=== PATIENT | female | born 1975 | race Caucasian/White ===

== ENCOUNTER 2018-05-05 15:27 | Emergency (ER) | payer SELFPAY ==
[~2018-05-05] VITALS: Ht 162.6 cm; Wt 70.0 kg
[2018-05-05] MEDS ORDERED: OXYcodone/APAP 5/325MG TABLET ONE (16:39)
[2018-05-05] MEDS ORDERED: OXYcodone/APAP 5/325MG TABLET PO ONE (17:00)
[2018-05-05 18:43] VITALS: BP 126/74
== END 2018-05-05 18:46 | disposition home or self-care (01) ==
LOC: ED 16:28
DX: S76.012A Strain of muscle, fascia and tendon of left hip, initial encounter (principal); W05.0XXA Fall from non-moving wheelchair, initial encounter; Y93.89 Activity, other specified; Y92.89 Other specified places as the place of occurrence of the external cause; Y99.8 Other external cause status
CPT/HCPCS: 99284

== ENCOUNTER 2018-05-06 18:43 | Emergency (ER) | payer MEDICAID ==
[~2018-05-06] VITALS: Ht 162.6 cm; Wt 70.0 kg
[2018-05-06 18:49] VITALS: BP 124/80
[2018-05-06 19:17] LABS: BASOPHILS # (AUTO) 0.05 x10^3/uL (0-0.1); BASOPHILS % (AUTO) 1 % (0-1); EOSINOPHILS # (AUTO) 0.08 x10^3/uL (0-0.4); EOSINOPHILS % (AUTO) 1 % (1-7); LYMPHOCYTES # (AUTO) 2.86 x10^3/uL (1-3.4); LYMPHOCYTES % (AUTO) 32 % (22-44); MD NO; MEAN CORPUSCULAR HEMOGLOBIN 28.1 pg (27.0-34.8); MEAN CORPUSCULAR HGB CONC 33.3 g/dL (32.4-35.8); MEAN CORPUSCULAR VOLUME 84.5 fL (80-100); MONOCYTES # (AUTO) 0.57 x10^3/uL (0.2-0.8); MONOCYTES % (AUTO) 6 % (2-9); NEUTROPHILS # (AUTO) 5.28 x10^3/uL (1.8-6.8); NEUTROPHILS % (AUTO) 60 % (42-75); PLATELET COUNT 200 x10^3/uL (130-400); RED BLOOD COUNT 5.32 x10^6/uL (3.82-5.3); RED CELL DISTRIBUTION WIDTH 14.2 % (9.6-15.2)
[2018-05-06 19:29] LABS: ALBUMIN 3.2 g/dL (3.4-5.0); ANION GAP 9 mmol/L (5-15); CALCIUM 9.1 mg/dL (8.5-10.1); CHLORIDE 111 mmol/L (98-107)
[2018-05-06 19:30] LABS: CREATININE 0.68 mg/dL (0.55-1.02)
== END 2018-05-06 20:58 | disposition home or self-care (01) ==
LOC: ED 20:45
DX: R53.1 Weakness (principal); W22.8XXA Striking against or struck by other objects, initial encounter; Y93.89 Activity, other specified; Y92.410 Unspecified street and highway as the place of occurrence of the external cause; Y99.8 Other external cause status
CPT/HCPCS: 36415; 80048; 80307; 82040; 85025; 99284

== ENCOUNTER 2018-05-06 22:42 | Emergency (ER) | payer MEDICAID ==
[~2018-05-06] VITALS: Ht 162.6 cm; Wt 65.0 kg
[2018-05-06 22:46] VITALS: BP 127/82
== END 2018-05-06 23:55 | disposition home or self-care (01) ==
LOC: ED 23:07
DX: F32.9 Major depressive disorder, single episode, unspecified (principal); Z86.73 Personal history of transient ischemic attack (TIA), and cerebral infarction without residual deficits; Z72.9 Problem related to lifestyle, unspecified; Z63.8 Other specified problems related to primary support group; Z90.49 Acquired absence of other specified parts of digestive tract; Z90.710 Acquired absence of both cervix and uterus
CPT/HCPCS: 99284

== ENCOUNTER 2018-05-11 08:44 | Emergency (ER) | payer MEDICAID ==
[~2018-05-11] VITALS: Ht 162.6 cm; Wt 95.2 kg
[2018-05-11] MEDS ORDERED: ONDANSETRON ODT 4 MG ONE (09:12)
[2018-05-11] MEDS ORDERED: HYDROmorphone 2 MG/ML, 1ML ONE (09:13)
[2018-05-11] MEDS ORDERED: ONDANSETRON ODT 4 MG PO ONE (09:30)
[2018-05-11] MEDS ORDERED: HYDROmorphone 1 MG/ML, 1ML IM ONE (09:30)
[2018-05-11] MEDS ORDERED: OXYcodone/APAP 5/325MG TABLET ONE (10:07)
[2018-05-11] MEDS ORDERED: OXYcodone/APAP 5/325MG TABLET PO ONE (10:30)
[2018-05-11 10:49] VITALS: BP 133/75
== END 2018-05-11 10:51 | disposition home or self-care (01) ==
LOC: ED 10:39
DX: S70.02XA Contusion of left hip, initial encounter (principal); W05.0XXA Fall from non-moving wheelchair, initial encounter; Y93.89 Activity, other specified; Y92.009 Unspecified place in unspecified non-institutional (private) residence as the place of occurrence of the external cause; Y99.8 Other external cause status
CPT/HCPCS: 99283